=== PATIENT | female | born 1950 | race Caucasian/White ===

== ENCOUNTER → 2016-11-29 | Outpatient (CLI) | payer MEDICARE, BC ==
[2016-11-29 11:11] LABS: ALT 25 U/L (9-52); AST 29 U/L (14-36); Blood Urea Nitrogen 13 mg/dL (7-17); Calcium 10.1 mg/dL (8.4-10.2); Cholesterol 297 mg/dL (<200); HDL Cholesterol 80 mg/dL (40-60); Non-African American GFR(MDRD) >60 (>60 ml/min/1.73 sqM); Triglycerides 122 mg/dL (<150)
== END | disposition home or self-care (01) ==
LOC: LABWHC1 09:50
PROVIDERS: ATTEND Internal Medicine
DX: E03.9 Hypothyroidism, unspecified (principal); I10 Essential (primary) hypertension; E78.00 Pure hypercholesterolemia, unspecified
CPT/HCPCS: 36415; 80061; 82310; 82565; 84443; 84450; 84460; 84520

== ENCOUNTER → 2017-04-12 | Outpatient (CLI) | payer MEDICARE, BC ==
[2017-04-12 11:08] LABS: Basophils % (A) 1 %; CH 31.3; CHCM 34.3; Eosinophils # (A) 0.2 k/uL (0-0.7); Eosinophils % (A) 3 %; HCT 39.2 % (34.0-46.0); HDW 2.51; HGB 13.3 gm/dL (11.4-16.0); Luc # (Auto) 0.14; Luc % (Auto) 2; Lymphocytes # (A) 1.3 k/uL (1.0-4.8); Lymphocytes % (A) 23 %; MCH 31.2 pg (25.0-35.0); MCV 91.6 fL (80.0-100.0); Mean Platelet Volume 6.4; Monocytes # (A) 0.4 k/uL (0-1.0); Monocytes % (A) 6 %; Neutrophils # (A) 3.7 k/uL (1.3-7.7); Neutrophils % (A) 65 %; RBC 4.28 m/uL (3.80-5.40); RDW 12.5 % (11.5-15.5); WBC 5.6 k/uL (3.8-10.6); WBC (Perox) 5.86
[2017-04-12 11:33] LABS: ALT 37 U/L (9-52); AST 30 U/L (14-36); Cholesterol 222 mg/dL (<200); Glucose 89 mg/dL (74-99); HDL Cholesterol 82 mg/dL (40-60)
== END | disposition home or self-care (01) ==
LOC: LABWHC1 10:26
PROVIDERS: ATTEND Internal Medicine
DX: E78.00 Pure hypercholesterolemia, unspecified (principal); R13.10 Dysphagia, unspecified; Z77.010 Contact with and (suspected) exposure to arsenic
CPT/HCPCS: 36415; 80061; 82947; 84450; 84460; 85025

== ENCOUNTER → 2019-01-02 | Outpatient (CLI) | payer MEDICARE, BC ==
[2019-01-02 11:36] LABS: Basophils # (A) 0.1 k/uL (0-0.2); Basophils % (A) 1 %; Eosinophils # (A) 0.2 k/uL (0-0.7); Eosinophils % (A) 3 %; HCT 39.8 % (34.0-46.0); HGB 13.2 gm/dL (11.4-16.0); Lymphocytes # (A) 1.3 k/uL (1.0-4.8); Lymphocytes % (A) 25 %; MCH 30.1 pg (25.0-35.0); MCHC 33.1 g/dL (31.0-37.0); MCV 90.9 fL (80.0-100.0); Mean Platelet Volume 6.6; Monocytes # (A) 0.3 k/uL (0-1.0); Monocytes % (A) 6 %; Neutrophils # (A) 3.4 k/uL (1.3-7.7); Neutrophils % (A) 63 %; Platelet Count 290 k/uL (150-450); RBC 4.38 m/uL (3.80-5.40); RDW 13.9 % (11.5-15.5); WBC 5.3 k/uL (3.8-10.6)
[2019-01-02 17:06] LABS: Calcium 9.7 mg/dL (8.7-10.3); LDL Cholesterol,Calculated 119.2 mg/dL (0.0-131.0); Potassium 4.9 mmol/L (3.5-5.5); VLDL Calculation 17.8 mg/dL (5.00-40.00)
== END | disposition home or self-care (01) ==
LOC: LABWHC1 10:46
PROVIDERS: ATTEND Internal Medicine
DX: E78.00 Pure hypercholesterolemia, unspecified (principal); I10 Essential (primary) hypertension; K25.9 Gastric ulcer, unspecified as acute or chronic, without hemorrhage or perforation
CPT/HCPCS: 36415; 80048; 80061; 84450; 84460; 85025

== ENCOUNTER → 2020-05-12 | Outpatient (CLI) | payer MEDICARE, BC ==
[2020-05-12 16:38] LABS: Basophils # (A) 0.1 k/uL (0-0.2); Basophils % (A) 1 %; Eosinophils # (A) 0.1 k/uL (0-0.7); Eosinophils % (A) 1 %; HCT 38.8 % (34.0-46.0); HGB 13.2 gm/dL (11.4-16.0); Lymphocytes # (A) 1.5 k/uL (1.0-4.8); Lymphocytes % (A) 16 %; MCH 32.5 pg (25.0-35.0); MCHC 34.2 g/dL (31.0-37.0); MCV 94.9 fL (80.0-100.0); Mean Platelet Volume 6.6; Monocytes # (A) 0.4 k/uL (0-1.0); Monocytes % (A) 4 %; Neutrophils % (A) 76 %; Platelet Count 254 k/uL (150-450); RBC 4.08 m/uL (3.80-5.40); RDW 12.2 % (11.5-15.5); WBC 9.2 k/uL (3.8-10.6)
[2020-05-13 00:08] LABS: Erythrocyte Sedimentation Rate 16 mm/Hr (0-30)
[2020-05-13 04:08] LABS: ALT 21 U/L (8-44); AST 17 U/L (13-35); Alkaline Phosphatase 48 U/L (41-126); BUN/Creat Ratio 21.43 Ratio (12.00-20.00); C Reactive Protein <0.4 mg/dL (0.0-0.8); Calcium 10.6 mg/dL (8.7-10.3); Carbon Dioxide 21.9 mmol/L (21.6-31.8); Chloride 101 mmol/L (96-109); Glucose 80 mg/dL (70-110); Non-African American GFR(CKD) 87.2 (60.0-200.0); Potassium 4.1 mmol/L (3.5-5.5); Sodium 131 mmol/L (135-145); Total Bilirubin 0.4 mg/dL (0.3-1.2); Total Protein 6.4 g/dL (6.2-8.2)
== END | disposition home or self-care (01) ==
LOC: LABWHC1 15:29
PROVIDERS: ATTEND Internal Medicine Gastroenterology
DX: R19.7 Diarrhea, unspecified (principal)
CPT/HCPCS: 36415; 80053; 85025; 85652; 86140

== ENCOUNTER → 2020-09-15 | Outpatient (CLI) | payer MEDICARE, BC ==
[2020-09-15 17:14] LABS: HCT 40.1 % (34.0-46.0); HGB 13.5 gm/dL (11.4-16.0); MCH 31.5 pg (25.0-35.0); MCHC 33.8 g/dL (31.0-37.0); MCV 93.2 fL (80.0-100.0); Mean Platelet Volume 6.6; Platelet Count 263 k/uL (150-450); RDW 12.2 % (11.5-15.5); WBC 8.3 k/uL (3.8-10.6)
[2020-09-15 17:26] LABS: African American GFR (CKD) >90 (>60 ml/min/1.73 sqM); Anion Gap 7 mmol/L; Blood Urea Nitrogen 14 mg/dL (7-17); Carbon Dioxide 26 mmol/L (22-30); Chloride 98 mmol/L (98-107); Non-African American GFR(CKD) 88 (>60 ml/min/1.73 sqM); Potassium 4.8 mmol/L (3.5-5.1); Sodium 131 mmol/L (137-145)
== END | disposition home or self-care (01) ==
LOC: LABPAT 16:00
PROVIDERS: ATTEND Internal Medicine Interventional Cardiology
DX: Z01.818 Encounter for other preprocedural examination (principal); R07.9 Chest pain, unspecified
CPT/HCPCS: 80051; 82565; 84520; 85027

== ENCOUNTER 2020-09-17 09:46 | Day surgery (SDC) | payer MEDICARE, BC ==
[2020-09-16 09:04] VITALS: BMI 27.2
[~2020-09-17 09:46] MED LIST: ALPRAZolam 0.25 MG TAB PO PRN; ALPRAZolam 0.5 MG TAB PO PRN; ASPIRIN 325 MG TAB PO STA; HEPARIN SODIUM,PORCINE 10,000 UNIT in SODIUM CHLORIDE 0.9% 1,000 ML IRRIGATION PRN; HEPARIN SODIUM,PORCINE 2,500 UNIT in SODIUM CHLORIDE 0.9% 250 ML IRRIGATION PRN; NITROGLYCERIN SL TABS 0.4 MG TAB SUBLINGUAL PRN; SODIUM CHLORIDE 0.9% 1,000 ML in EMPTY BAG 1 BAG IV ONE
[2020-09-17 10:36] VITALS: TEMP 98.2
[2020-09-17] MEDS: MIDAZOLAM 2 MG/2 ML VIAL IVP ONE ×2 (11:57→12:01)
[2020-09-17] MEDS ORDERED: LIDOCAINE 1% INJ 10MG/ML (20 ML MDV) SQ ONE (11:57)
[2020-09-17] MEDS: fentaNYL (PF) 50 MCG/ML 2 ML AMP IVP ONE ×2 (11:57→12:01)
[2020-09-17] MEDS ORDERED: VERAPAMIL SYRINGE (5 MG/10 ML) INTRAARTER ONE (11:59)
[2020-09-17] MEDS ORDERED: HEPARIN SODIUM 1,000 UN/ML (10ML VL) IV ONE (12:06)
[2020-09-17] MEDS ORDERED: IOPAMIDOL-370 125ML BTL INJ ONE (12:06)
[2020-09-17] MEDS ORDERED: SODIUM CHLORIDE 0.9% 1,000 ML IV SCH (12:15)
[2020-09-17 13:10] VITALS: RESP 16
--- NOTE | 2020-09-17 13:30 | CC ---
CARDIAC CATHETERIZATION REPORT DATE OF SERVICE: September 17, 2020 PERFORMING PHYSICIAN: Khai Mccormick MD. PROCEDURE PERFORMED: 1. Selective right and left coronary angiogram. 2. Left heart catheterization. INDICATION: This is a 70-year-old female patient with dyslipidemia and significant family history of coronary artery disease, was seen in the office recently with chest discomfort concerning for angina. She would like to have a definite diagnosis and because of that, a heart catheterization was advised. APPROACH: Right radial artery. COMPLICATION: None. LEVEL OF SEDATION: Moderate with a sedation length of 11 minutes. PROCEDURE DESCRIPTION: After obtaining an informed consent, the patient was brought to the cardiac analytical lab analyst. The right radial artery was cannulated using micropuncture technique, the micropuncture wire passed easily then I placed a 6-Cambodian sheath at the right radial artery. I gave the patient a total of 5000 units of heparin IV. Selective right and left coronary angiogram was performed using JR4 and JL3.5 catheters. The procedure was completed without any complication. I did left heart catheterization with a JR4 crossing the aortic valve then I did pullback across aortic valve. The procedure was completed without any complication. SELECTIVE CORONARY ANGIOGRAM: 1. The RCA is a large caliber vessel and it is a dominant vessel. The RCA appeared to have mild disease only. Distally, it bifurcates into PDA and PLV branches and both appeared to be angiographically normal. 2. The left main is angiographically normal. It bifurcates into LCX and LAD. 3. The LCX is a large caliber vessel. It is a nondominant vessel. The left circumflex is angiographically normal. It gives rise in the midportion into a large OM branch, which appeared to be angiographically normal. 4. The LAD is a large caliber vessel. The LAD is extremely calcified. It does have mild disease in the midportion. It gives rise into a large diagonal branch which seems to be angiographically normal. HEMODYNAMIC: The LVEDP was 12 mmHg without significant gradient across the aortic valve. CONCLUSION: 1. Calcified right and left coronary system. 2. Mild nonobstructive coronary artery disease. 3. Normal LVEDP. POSTPROCEDURE MANAGEMENT: 1. Medical treatment. 2. Follow up with the patient. MMODL / IJN: [id number] /
[2020-09-17 14:22] VITALS: BP 112/56; PULSE 73
== END 2020-09-17 15:27 | disposition home or self-care (01) ==
LOC: CATHCVL 09:46
PROVIDERS: ATTEND Internal Medicine Interventional Cardiology
DX: I25.10 Atherosclerotic heart disease of native coronary artery without angina pectoris (principal); R07.89 Other chest pain; I10 Essential (primary) hypertension; E78.5 Hyperlipidemia, unspecified; I35.1 Nonrheumatic aortic (valve) insufficiency; Z72.0 Tobacco use; Z79.899 Other long term (current) drug therapy; Z79.890 Hormone replacement therapy; Z88.8 Allergy status to other drugs, medicaments and biological substances; Z82.49 Family history of ischemic heart disease and other diseases of the circulatory system
CPT/HCPCS: 93458; C1769 ×2; C1894; J2250; J2001; J3010; J1644; Q9967

== ENCOUNTER 2020-09-22 14:50 | Emergency (ER) | payer MEDICARE, BC ==
--- NOTE | 2020-09-22 15:24 | ED ---
Extremity Problem HPI - General Chief complaint: Extremity Problem,Nontraumatic Stated complaint: Post heart cath wrist issue Time Seen by Provider: 09/22/20 14:55 Source: patient Mode of arrival: ambulatory Limitations: no limitations - History of Present Illness Initial comments: 70-year-old female with past medical history of high cholesterol who presents emergency Department with reported right upper extremity discomfort and pulsation. She had a heart cath on Sunday with Dr. Mccormick states that she noticed yesterday she was having pulsations over the dorsal aspect of her right wrist. She called Dr. Mccormick to notify the patient of her symptoms. Reports that the pulsations then proceeded up into her forearm and she called Dr. Mccormick's office back again who recommended that she going to the emergency room for evaluation. She denies any numbness, tingling, weakness or skin color changes in her hand. Does admit to chest pain however this has been constant for the past 2 months and precipitated the cath. Denies that she's had any changes to the chest pain. Occasionally will make her feel short of breath at night. Denies any lower extremity swelling. No history of DVT or PE. Not on any anticoagulation. No fevers or chills. Denies cough. Does have a history of pancreatitis and is concerned that her symptoms may be similar in nature. Denies any nausea or vomiting. No other alleviating, precipitating or modifying factors - Related Data Home Medications Medication Instructions Recorded Confirmed Aspirin 325 mg PO DAILY 09/16/20 09/16/20 Estrogen Cream 0.125 mg TOPICAL BID 09/16/20 Fluconazole [Diflucan] 150 mg PO FR 09/16/20 09/17/20 Levothyroxine Sodium [Synthroid] 88 mcg PO DAILY 09/16/20 09/17/20 Olmesartan [Benicar] 20 mg PO DAILY 09/16/20 09/17/20 Omeprazole [PriLOSEC] 20 mg PO AC-BRKFST 09/16/20 09/16/20 Progesterone Cream 100 mg TOPICAL BID 09/16/20 Rosuvastatin Calcium [Crestor] 5 mg PO Q2D 09/16/20 09/17/20 Testosterone [Testosterone 1.62% 1 packet TRANSDERM BID 09/16/20 09/16/20 (2500 mg)] buPROPion XL [Wellbutrin Xl] 150 mg PO DAILY 09/16/20 09/17/20 carvediloL [Coreg] 3.125 mg PO BID 09/16/20 09/17/20 Allergies Allergy/AdvReac Type Severity Reaction Status Date / Time niacin Allergy Severe Anaphylaxis Verified 09/22/20 15:00 [From Niaspan Extended-Release] Review of Systems ROS Statement: Those systems with pertinent positive or pertinent negative responses have been documented in the HPI. ROS Other: All systems not noted in ROS Statement are negative. Past Medical History Past Medical History: Asthma, GERD/Reflux, Hyperlipidemia, Hypertension, Thyroid Disorder Additional Past Medical History / Comment(s): ASTHMA- WELL CONTROLLED, HX MERXURY POISONING 2005, COLONGENESIS COLITIS AND DIVERTICULITIS AND AORTIC REGURGITATION History of Any Multi-Drug Resistant Organisms: None Reported Past Surgical History: Heart Catheterization, Hysterectomy, Orthopedic Surgery Additional Past Surgical History / Comment(s): BILAT BUNIONECTOMY-2015, COLONOSCOPIES-LAST 06/2020, HYSTERECTOMY 1995, BILAT CARPAL TUNNEL RELEASE 2004, Colonoscopy June 2020, EGD 2019, Heart cath with no stent on 09/17/2020 Past Anesthesia/Blood Transfusion Reactions: Previous Problems w/ Anesthesia, Postoperative Nausea & Vomiting (PONV) Additional Past Anesthesia/Blood Transfusion Reaction / Comment(s): WOKE UP DURING COLONOSCOPY IN 06/2020 Past Psychological History: Anxiety, Depression Smoking Status: Former smoker Past Alcohol Use History: Occasional Past Drug Use History: None Reported - Past Family History Mother Family Medical History: No Reported History General Exam Limitations: no limitations General appearance: alert, in no apparent distress Head exam: Present: atraumatic, normocephalic, normal inspection Eye exam: Present: normal appearance, PERRL, EOMI. Absent: scleral icterus, conjunctival injection, periorbital swelling ENT exam: Present: normal exam, mucous membranes moist Neck exam: Present: normal inspection. Absent: tenderness, meningismus, lymphadenopathy Respiratory exam: Present: normal lung sounds bilaterally. Absent: respiratory distress, wheezes, rales, rhonchi, stridor Cardiovascular Exam: Present: regular rate, normal rhythm, normal heart sounds. Absent: systolic murmur, diastolic murmur, rubs, gallop, clicks GI/Abdominal exam: Present: soft, normal bowel sounds. Absent: distended, tenderness, guarding, rebound, rigid Extremities exam: Present: normal inspection, full ROM, normal capillary refill. Absent: tenderness, pedal edema, joint swelling, calf tenderness Back exam: Present: normal inspection Neurological exam: Present: alert, oriented X3, CN II-XII intact Psychiatric exam: Present: normal affect, normal mood Skin exam: Present: warm, dry, intact, normal color. Absent: rash Course Vital Signs 09/22/20 09/22/20 14:53 17:38 Temperature 97.6 F 97.9 F Pulse Rate 84 77 Respiratory 18 16 Rate Blood Pressure 113/74 115/71 O2 Sat by Pulse 100 98 Oximetry Medical Decision Making - Medical Decision Making Upon arrival the patient is placed into room 3. A thorough history and physical exam was performed. A 12-lead EKG was performed. Other tracings are conducted. IV is established. Ultrasound was performed patient's right upper extremity which failed to demonstrate a pseudoaneurysm. Laboratory studies revealed a sodium of 125. D-dimer 0.26. Troponin is negative. Results are discussed with the patient. Attempted to contact Dr. Mccormick as he has sent the patient into the emergency department. Currently awaiting callback. The results are discussed the patient. She was given a liter bolus of normal saline. Instructed that she needs to have repeat laboratory studies drawn on Sunday. She is given a prescription. These results will be sent Dr. Mccormick that she does have an appointment with him next Sunday. If she has any new or worsening symptoms she should return to the emergency room. Patient was discharged home in stable con dition - Lab Data Result diagrams: 09/22/20 15:54 09/22/20 15:54 Lab Results 09/22/20 09/22/20 09/22/20 Range/Units 15:54 15:54 15:54 WBC 7.0 (3.8-10.6) k/uL RBC 4.27 (3.80-5.40) m/uL Hgb 13.6 (11.4-16.0) gm/dL Hct 38.6 (34.0-46.0) % MCV 90.3 (80.0-100.0) fL MCH 31.7 (25.0-35.0) pg MCHC 35.1 (31.0-37.0) g/dL RDW 12.1 (11.5-15.5) % Plt Count 283 (150-450) k/uL MPV 6.6 Neutrophils % 73 % Lymphocytes % 17 % Monocytes % 7 % Eosinophils % 2 % Basophils % 1 % Neutrophils # 5.1 (1.3-7.7) k/uL Lymphocytes # 1.2 (1.0-4.8) k/uL Monocytes # 0.5 (0-1.0) k/uL Eosinophils # 0.1 (0-0.7) k/uL Basophils # 0.0 (0-0.2) k/uL PT 10.1 (9.0-12.0) sec INR 0.9 (<1.2) APTT 24.3 (22.0-30.0) sec D-Dimer 0.26 (<0.60) mg/L FEU Sodium 125 L (137-145) mmol/L Potassium 4.5 (3.5-5.1) mmol/L Chloride 94 L (98-107) mmol/L Carbon Dioxide 23 (22-30) mmol/L Anion Gap 8 mmol/L BUN 15 (7-17) mg/dL Creatinine 0.66 (0.52-1.04) mg/dL Est GFR (CKD-EPI)AfAm >90 (>60 ml/min/1.73 sqM) Est GFR (CKD-EPI)NonAf 89 (>60 ml/min/1.73 sqM) Glucose 108 H (74-99) mg/dL Calcium 10.0 (8.4-10.2) mg/dL Total Bilirubin 0.5 (0.2-1.3) mg/dL AST 24 (14-36) U/L ALT 21 (4-34) U/L Alkaline Phosphatase 46 (38-126) U/L Troponin I (0.000-0.034) ng/mL Total Protein 7.0 (6.3-8.2) g/dL Albumin 4.3 (3.5-5.0) g/dL Lipase 64 (23-300) U/L 09/22/20 Range/Units 15:54 WBC (3.8-10.6) k/uL RBC (3.80-5.40) m/uL Hgb (11.4-16.0) gm/dL Hct (34.0-46.0) % MCV (80.0-100.0) fL MCH (25.0-35.0) pg MCHC (31.0-37.0) g/dL RDW (11.5-15.5) % Plt Count (150-450) k/uL MPV Neutrophils % % Lymphocytes % % Monocytes % % Eosinophils % % Basophils % % Neutrophils # (1.3-7.7) k/uL Lymphocytes # (1.0-4.8) k/uL Monocytes # (0-1.0) k/uL Eosinophils # (0-0.7) k/uL Basophils # (0-0.2) k/uL PT (9.0-12.0) sec INR (<1.2) APTT (22.0-30.0) sec D-Dimer (<0.60) mg/L FEU Sodium (137-145) mmol/L Potassium (3.5-5.1) mmol/L Chloride (98-107) mmol/L Carbon Dioxide (22-30) mmol/L Anion Gap mmol/L BUN (7-17) mg/dL Creatinine (0.52-1.04) mg/dL Est GFR (CKD-EPI)AfAm (>60 ml/min/1.73 sqM) Est GFR (CKD-EPI)NonAf (>60 ml/min/1.73 sqM) Glucose (74-99) mg/dL Calcium (8.4-10.2) mg/dL Total Bilirubin (0.2-1.3) mg/dL AST (14-36) U/L ALT (4-34) U/L Alkaline Phosphatase (38-126) U/L Troponin I <0.012 (0.000-0.034) ng/mL Total Protein (6.3-8.2) g/dL Albumin (3.5-5.0) g/dL Lipase (23-300) U/L - EKG Data EKG Comments: EKG demonstrates normal sinus rhythm with a ventricular rate of 80. AR interval 148. QRS 92. QTC 415. No acute ST segment elevations. Incomplete report bundle-branch block. Q wave with inverted T in lead 3 Disposition Clinical Impression: S/P cardiac cath, Wrist pain, Hyponatremia Disposition: HOME SELF-CARE Condition: Stable Instructions (If sedation given, give patient instructions): Heart Catheterization (DC) Additional Instructions: Please follow-up with Dr. Mccormick at your scheduled appointment on Sunday. Return to the ED for any new or worsening symptoms. Have your labs drawn on sunday. The results will be sent to Dr. Astudillo office. Is patient prescribed a controlled substance at d/c from ED?: No Referrals: Nonstaff,Physician [Primary Care Provider] - 1-2 days Khai Mccormick MD [STAFF PHYSICIAN] - 1-2 days Time of Disposition: 17:28
[2020-09-22 16:01] LABS: Basophils % (A) 1 %; Eosinophils # (A) 0.1 k/uL (0-0.7); Eosinophils % (A) 2 %; HCT 38.6 % (34.0-46.0); HGB 13.6 gm/dL (11.4-16.0); Lymphocytes # (A) 1.2 k/uL (1.0-4.8); Lymphocytes % (A) 17 %; MCH 31.7 pg (25.0-35.0); MCHC 35.1 g/dL (31.0-37.0); MCV 90.3 fL (80.0-100.0); Mean Platelet Volume 6.6; Monocytes # (A) 0.5 k/uL (0-1.0); Monocytes % (A) 7 %; Neutrophils # (A) 5.1 k/uL (1.3-7.7); Neutrophils % (A) 73 %; Platelet Count 283 k/uL (150-450); RBC 4.27 m/uL (3.80-5.40); RDW 12.1 % (11.5-15.5)
[2020-09-22 16:10] LABS: ALT 21 U/L (4-34); AST 24 U/L (14-36); African American GFR (CKD) >90 (>60 ml/min/1.73 sqM); Albumin 4.3 g/dL (3.5-5.0); Alkaline Phosphatase 46 U/L (38-126); Anion Gap 8 mmol/L; Blood Urea Nitrogen 15 mg/dL (7-17); Carbon Dioxide 23 mmol/L (22-30); Chloride 94 mmol/L (98-107); Glucose 108 mg/dL (74-99); Lipase 64 U/L (23-300); Non-African American GFR(CKD) 89 (>60 ml/min/1.73 sqM); Potassium 4.5 mmol/L (3.5-5.1); Sodium 125 mmol/L (137-145); Total Bilirubin 0.5 mg/dL (0.2-1.3)
[2020-09-22] MEDS ORDERED: SODIUM CHLORIDE 0.9% 1,000 ML IV ONE (16:17)
[2020-09-22 16:21] LABS: D-Dimer 0.26 mg/L FEU (<0.60); INR 0.9 (<1.2); Partial Thromboplastin Time 24.3 sec (22.0-30.0); Prothrombin Time 10.1 sec (9.0-12.0)
--- NOTE | 2020-09-22 16:26 | US ---
EXAMINATION TYPE: US upper ext pseudo RT DATE OF EXAM: 09/22/2020 COMPARISON: NONE CLINICAL HISTORY: recent heart cath, pulsating cath site. Patient hd heart cath 09/17, states she felt a pulsatile palpable at her cath site. Normal soft tissue scan with no abnormality of the radial artery seen. IMPRESSION: No diagnostic evidence of pseudoaneurysm.
[2020-09-22 17:40] VITALS: BP 115/71; PULSE 77; RESP 16; TEMP 97.9
== END 2020-09-22 17:38 | disposition home or self-care (01) ==
LOC: EC 14:50
DX: E87.1 Hypo-osmolality and hyponatremia (principal); M25.531 Pain in right wrist; Z98.890 Other specified postprocedural states; J45.909 Unspecified asthma, uncomplicated; K21.9 Gastro-esophageal reflux disease without esophagitis; I10 Essential (primary) hypertension; E78.5 Hyperlipidemia, unspecified; E78.00 Pure hypercholesterolemia, unspecified; E07.9 Disorder of thyroid, unspecified; F41.9 Anxiety disorder, unspecified; F32.9 Major depressive disorder, single episode, unspecified; Z79.890 Hormone replacement therapy; Z79.02 Long term (current) use of antithrombotics/antiplatelets; Z79.899 Other long term (current) drug therapy; Z88.8 Allergy status to other drugs, medicaments and biological substances; Z87.891 Personal history of nicotine dependence
CPT/HCPCS: 36415; 80053; 83690; 84484; 85025; 85379; 85610; 85730; 93005; 96360; 99284

== ENCOUNTER → 2020-09-24 | Outpatient (CLI) | payer MEDICARE, BC ==
[2020-09-25 02:15] LABS: African American GFR (CKD) 85.4 (60.0-200.0); Anion Gap 7.4 mmol/L (4.00-12.00); Calcium 10.1 mg/dL (8.7-10.3); Carbon Dioxide 23.6 mmol/L (21.6-31.8); Non-African American GFR(CKD) 73.7 (60.0-200.0); Potassium 4.7 mmol/L (3.5-5.5)
== END | disposition home or self-care (01) ==
LOC: LABWHC1 15:12
PROVIDERS: ATTEND Emergency Medicine
DX: E87.1 Hypo-osmolality and hyponatremia (principal)
CPT/HCPCS: 36415; 80048

== ENCOUNTER → 2022-07-03 | Outpatient (CLI) | payer MEDICARE, BC ==
[2022-07-03 15:24] LABS: HCT 40.7 % (37.2-46.3); HGB 13.3 g/dL (12.0-15.0); MCH 30.6 pg (27.0-32.0); MCHC 32.7 g/dL (32.0-37.0); MCV 93.8 fL (80.0-97.0); Mean Platelet Volume 10.3 fL (9.5-12.2); NRBC Per 100 WBC 0 /100 WBCS (0.0-0.0); Platelet Count 289 X 10*3/uL (140-440); RBC 4.34 X 10*6/uL (4.10-5.20); RDW 12.8 % (11.5-14.5); WBC 6.45 X 10*3/uL (4.50-10.00)
[2022-07-03 15:33] LABS: Chol/HDL Ratio 3.04 Ratio; LDL Cholesterol,Calculated 135.2 mg/dL (0.0-131.0)
[2022-07-03 15:48] LABS: ALT 22 U/L (8-44); AST 24 U/L (13-35); African American GFR (CKD) 87.9 (60.0-200.0); Blood Urea Nitrogen 17.6 mg/dL (9.0-27.0); Calcium 9.6 mg/dL (8.7-10.3); Carbon Dioxide 24.2 mmol/L (20.0-27.5); Chloride 98 mmol/L (96-109); Glucose 105 mg/dL (70-110); Non-African American GFR(CKD) 75.8 (60.0-200.0); Potassium 5.3 mmol/L (3.5-5.5); Sodium 134 mmol/L (135-145)
== END | disposition home or self-care (01) ==
LOC: LABWHC1 09:51
PROVIDERS: ATTEND Internal Medicine Interventional Cardiology
DX: E78.2 Mixed hyperlipidemia (principal)
CPT/HCPCS: 36415; 80048; 80061; 84450; 84460; 85027

== ENCOUNTER → 2023-05-02 | Outpatient (CLI) | payer MEDICARE, BC ==
--- NOTE | 2023-05-03 08:20 | XR ---
EXAMINATION TYPE: XR facial bones complete DATE OF EXAM: 05/02/2023 COMPARISON: NONE HISTORY: Pain TECHNIQUE: 4 views submitted FINDINGS: Nasal septal deviation. Visualized osseous structures. Zygomatic arch appears no definite acute fract ure no obvious acute fracture or dislocation. IMPRESSION: No acute fracture
--- NOTE | 2023-05-03 08:21 | XR ---
EXAMINATION TYPE: XR humerus RT DATE OF EXAM: 05/02/2023 COMPARISON: NONE HISTORY: Pain TECHNIQUE: 2 views submitted. FINDINGS: The osseous structures are intact and the joint spaces are preserved. Diffuse osteopenia. Small spur involving the condyle. IMPRESSION: 1. No acute fracture or dislocation.
== END | disposition home or self-care (01) ==
LOC: RADXRMAIN 15:49
PROVIDERS: ATTEND Family Medicine
DX: S09.93XA Unspecified injury of face, initial encounter (principal); M79.621 Pain in right upper arm
CPT/HCPCS: 70150

== ENCOUNTER 2023-10-13 00:50 | Inpatient (IN) | payer MEDICARE, BC ==
--- NOTE | 2023-10-13 01:44 | ED ---
Abdominal Pain HPI <ManuelkrishJerome - Last Filed: 10/13/23 06:42> - General Source: patient Mode of arrival: wheelchair Limitations: no limitations <Ricki Arreola - Last Filed: 10/13/23 16:50> - General Chief Complaint: Abdominal Pain Stated Complaint: Right Side Abdominal Pain Time Seen by Provider: 10/13/23 01:08 - History of Present Illness Initial Comments: 73-year-old female presenting with chief complaint of abdominal pain. Patient started experiencing right lower quadrant pain at around 230 this afternoon. States that it has been sharp in nature and has been progressively worsening. She admits to decreased appetite. No nausea or vomiting. No fevers. She admits to cramping lower abdominal pain. Surgical history includes hysterectomy with bilateral oophorectomy. (Ricki Arreola) - Related Data Home Medications Medication Instructions Recorded Confirmed Fluconazole [Diflucan] 150 mg PO FR 09/16/20 10/13/23 Olmesartan [Benicar] 20 mg PO DAILY 09/16/20 10/13/23 Omeprazole [PriLOSEC] 20 mg PO DAILY 09/16/20 10/13/23 Rosuvastatin Calcium [Crestor] 5 mg PO Q2D 09/16/20 10/13/23 carvediloL [Coreg] 3.125 mg PO DAILY 09/16/20 10/13/23 Compounded 1 applic TOPICAL BID 10/13/23 10/13/23 Testosterone/Progesterone/Estrogen Cream(Unknown) Ofloxacin 0.3% Ophth Soln [Ocuflox 1 drop RIGHT EYE QID 10/13/23 10/13/23 Ophth Soln] Tretinoin [Tretinoin 0.05%] 1 applic TOPICAL HS 10/13/23 10/13/23 buPROPion SR [Wellbutrin SR] 150 mg PO DAILY 10/13/23 10/13/23 prednisoLONE ACETATE 1% OPHTH 1 drop RIGHT EYE QID 10/13/23 10/13/23 [Pred Forte 1%] Allergies Allergy/AdvReac Type Severity Reaction Status Date / Time niacin Allergy Severe Anaphylaxis Verified 10/13/23 10:06 [From Niaspan Extended-Release] piperacillin Allergy Rash/Hives Verified 10/13/23 10:06 pravastatin [From Pravachol] Allergy Unknown Verified 10/13/23 10:06 Review of Systems ROS Other: All systems not noted in ROS Statement are negative. <ManuelkrishJerome - Last Filed: 10/13/23 06:42> ROS Other: All systems not noted in ROS Statement are negative. <Ricki Arreola - Last Filed: 10/13/23 16:50> ROS Statement: Those systems with pertinent positive or pertinent negative responses have been documented in the HPI. Past Medical History Past Medical History: Asthma, GERD/Reflux, Hyperlipidemia, Hypertension, Thyroid Disorder Additional Past Medical History / Comment(s): ASTHMA- WELL CONTROLLED, HX MERXURY POISONING 2005, COLONGENESIS COLITIS AND DIVERTICULITIS AND AORTIC REGURGITATION History of Any Multi-Drug Resistant Organisms: None Reported Past Surgical History: Heart Catheterization, Hysterectomy, Orthopedic Surgery Additional Past Surgical History / Comment(s): BILAT BUNIONECTOMY-2015, COLONOSCOPIES-LAST 06/2020, HYSTERECTOMY 1995, BILAT CARPAL TUNNEL RELEASE 2004, Colonoscopy June 2020, EGD 2019, Heart cath with no stent on 09/17/2020 Past Anesthesia/Blood Transfusion Reactions: Previous Problems w/ Anesthesia, Postoperative Nausea & Vomiting (PONV) Additional Past Anesthesia/Blood Transfusion Reaction / Comment(s): WOKE UP DURING COLONOSCOPY IN 06/2020 Past Psychological History: Anxiety, Depression Smoking Status: Former smoker Past Alcohol Use History: Occasional Past Drug Use History: None Reported - Past Family History Mother Family Medical History: No Reported History <Ricki Arreola - Last Filed: 10/13/23 16:50> General Exam Limitations: no limitations General appearance: alert, in no apparent distress Head exam: Present: atraumatic, normocephalic Eye exam: Present: normal appearance Neck exam: Present: normal inspection Respiratory exam: Present: normal lung sounds bilaterally. Absent: respiratory distress, wheezes, rales, rhonchi, stridor Cardiovascular Exam: Present: regular rate, normal rhythm, normal heart sounds. Absent: systolic murmur, diastolic murmur, rubs, gallop, clicks GI/Abdominal exam: Present: soft, tenderness, guarding. Absent: distended, rebound, rigid Neurological exam: Present: alert, oriented X3 Psychiatric exam: Present: normal affect, normal mood Skin exam: Present: warm, dry <Ricki Arreola - Last Filed: 10/13/23 16:50> Course Vital Signs 10/13/23 10/13/23 10/13/23 00:52 03:11 05:44 Temperature 98.7 F 97.9 F Pulse Rate 85 83 80 Respiratory 16 20 17 Rate Blood Pressure 179/89 145/70 120/68 O2 Sat by Pulse 98 98 97 Oximetry 10/13/23 08:31 Temperature 98.6 F Pulse Rate 94 Respiratory 18 Rate Blood Pressure 130/81 O2 Sat by Pulse 97 Oximetry Medical Decision Making - Lab Data Result diagrams: 10/13/23 01:45 10/13/23 01:45 <Jerome Pinon - Last Filed: 10/13/23 06:42> - Lab Data Result diagrams: 10/13/23 01:45 10/13/23 01:45 <Ricki Arreola - Last Filed: 10/13/23 16:50> - Medical Decision Making Was pt. sent in by a medical professional or institution (, PA, SALES COORDINATOR, urgent care, hospital, or mcc...) When possible be specific @ -[No] Did you speak to anyone other than the patient for history (EMS, parent, family, police, friend...)? What history was obtained from this source @ -[No] Did you review nursing and triage notes (agree or disagree)? Why? @ -[I reviewed and agree with nursing and triage notes] Were old charts reviewed (outside hosp., previous admission, EMS record, old EKG, old radiological studies, urgent care reports/EKG's, mcc records)? Report findings @ -[No old charts were reviewed] Differential Diagnosis (chest pain, altered mental status, abdominal pain women, abdominal pain men, vaginal bleeding, weakness, fever, dyspnea, syncope, headache, dizziness, GI bleed, back pain, seizure, CVA, palpatations, mental health, musculoskeletal)? @ -[Differential Abdominal Pain Women: Appendicitis, Cholecystitis, diverticulosis, ischemic bowel, pancreatitis, hepatitis, UTI, gastroenteritis, AAA, incarcerated hernia, bowel obstruction, constipation, inflammatory bowel, hepatitis, peptic ulcer disease, splenic infarction, perforated viscus, vulvitis, ovarian torsion, PID, kidney stone, placenta abruption, this is not meant to be an all-inclusive list EKG interpreted by me (3pts min.). @ -[As above] X-rays interpreted by me (1pt min.). @ -[None done] CT interpreted by me (1pt min.). @ -[None done] U/S interpreted by me (1pt. min.). @ -[None done] What testing was considered but not performed or refused? (CT, X-rays, U/S, labs)? Why? @ -[None] What meds were considered but not given or refused? Why? @ -[None] Did you discuss the management of the patient with other professionals (professionals i.e. , PA, SALES COORDINATOR, lab, RT, psych nurse, social services coordinator, arc welding machine operator, teacher, inspectors and regulatory officers, rn case manager hospice)? Give summary @ -[No] Was smoking cessation discussed for >3mins.? @ -[No] Was critical care preformed (if so, how long)? @ -[No] Were there social determinants of health that impacted care today? How? (Homelessness, low income, unemployed, alcoholism, drug addiction, transportation, low edu. Level, literacy, decrease access to med. care, snf, rehab)? @ -[No] Was there de-escalation of care discussed even if they declined (Discuss DNR or withdrawal of care, Hospice)? DNR status @ -[No] What co-morbidities impacted this encounter? (DM, HTN, Smoking, COPD, CAD, Cancer, CVA, ARF, Chemo, Hep., AIDS, mental health diagnosis, sleep apnea, morbid obesity)? @ -[None] Was patient admitted / discharged? Hospital course, mention meds given and route, prescriptions, significant lab abnormalities, going to OR and other p ertinent info. The patient's CT scan was pending radiology review at the time of shift change. Patient will be taken over by Dr. Arreola. (Jerome Pinon) Was pt. sent in by a medical professional or institution (, PA, SALES COORDINATOR, urgent care, hospital, or mcc...) When possible be specific @ -No Did you speak to anyone other than the patient for history (EMS, parent, family, police, friend...)? What history was obtained from this source @ -No Did you review nursing and triage notes (agree or disagree)? Why? @ -I reviewed and agree with nursing and triage notes Were old charts reviewed (outside hosp., previous admission, EMS record, old EKG, old radiological studies, urgent care reports/EKG's, mcc records)? Report findings @ -No old charts were reviewed Differential Diagnosis (chest pain, altered mental status, abdominal pain women, abdominal pain men, vaginal bleeding, weakness, fever, dyspnea, syncope, headache, dizziness, GI bleed, back pain, seizure, CVA, palpatations, mental health, musculoskeletal)? @ -MDM Differential Abdominal Pain Women: Appendicitis, Cholecystitis, diverticulosis, ischemic bowel, pancreatitis, hepatitis, UTI, gastroenteritis, AAA, incarcerated hernia, bowel obstruction, constipation, inflammatory bowel, hepatitis, peptic ulcer disease, splenic infarction, perforated viscus, vulvitis, ovarian torsion, PID, kidney stone, placenta abruption... This is not meant to be an all-inclusive list EKG interpreted by me (3pts min.). @ -As above X-rays interpreted by me (1pt min.). @ -None done CT interpreted by me (1pt min.). @ -None done U/S interpreted by me (1pt. min.). @ -None done What testing was considered but not performed or refused? (CT, X-rays, U/S, labs)? Why? @ -None What meds were considered but not given or refused? Why? @ -None Did you discuss the management of the patient with other professionals (professionals i.e. , PA, SALES COORDINATOR, lab, RT, psych nurse, social services coordinator, arc welding machine operator, teacher, inspectors and regulatory officers, rn case manager hospice)? Give summary @ -No Was smoking cessation discussed for >3mins.? @ -No Was critical care preformed (if so, how long)? @ -No Were there social determinants of health that impacted care today? How? (Homelessness, low income, unemployed, alcoholism, drug addiction, transpo rtation, low edu. Level, literacy, decrease access to med. care, snf, rehab)? @ -No Was there de-escalation of care discussed even if they declined (Discuss DNR or withdrawal of care, Hospice)? DNR status @ -No What co-morbidities impacted this encounter? (DM, HTN, Smoking, COPD, CAD, Cancer, CVA, ARF, Chemo, Hep., AIDS, mental health diagnosis, sleep apnea, morbid obesity)? @ -None Was patient admitted / discharged? Hospital course, mention meds given and route, prescriptions, significant lab abnormalities, going to OR and other pertinent info. @ -73-year-old female presenting chief complaint of right lower quadrant pain that started today. Admits to decreased appetite. History and physical exam are conducted. She has right lower quadrant tenderness and guarding as well as referred tenderness. WBC 13.3. Sodium is 127, patient has a baseline lower sodium level and with today's symptoms and decreased appetite likely has worsened her baseline hyponatremia. Urine shows large leukocytes with 24 WBCs and 21 squamous cells, could be inflammatory from possible appendicitis. CT of the abdomen pelvis with contrast is obtained, report is pending. Patient is signed out to my attending Dr. Pinon for further management and disposition (Ricki Arreola) - Lab Data Lab Results 10/13/23 10/13/23 10/13/23 Range/Units 01:45 01:45 01:45 WBC 13.3 H (3.8-10.6) k/uL RBC 4.34 (3.80-5.40) m/uL Hgb 13.6 (11.4-16.0) gm/dL Hct 39.2 (34.0-46.0) % MCV 90.1 (80.0-100.0) fL MCH 31.3 (25.0-35.0) pg MCHC 34.7 (31.0-37.0) g/dL RDW 13.2 (11.5-15.5) % Plt Count 241 (150-450) k/uL MPV 8.0 Neutrophils % 82 % Lymphocytes % 7 % Monocytes % 8 % Eosinophils % 1 % Basophils % 0 % Neutrophils # 10.9 H (1.3-7.7) k/uL Lymphocytes # 0.9 L (1.0-4.8) k/uL Monocytes # 1.1 H (0-1.0) k/uL Eosinophils # 0.2 (0-0.7) k/uL Basophils # 0.0 (0-0.2) k/uL Sodium 127 L (137-145) mmol/L Potassium 5.0 (3.5-5.1) mmol/L Chloride 100 (98-107) mmol/L Carbon Dioxide 20 L (22-30) mmol/L Anion Gap 7 mmol/L BUN 17 (7-17) mg/dL Creatinine 0.53 (0.52-1.04) mg/dL Est GFR (CKD-EPI)AfAm >90 (>60 ml/min/1.73 sqM) Est GFR (CKD-EPI)NonAf >90 (>60 ml/min/1.73 sqM) Glucose 107 H (74-99) mg/dL Plasma Lactic Acid Krishna (0.7-2.0) mmol/L Calcium 9.1 (8.4-10.2) mg/dL Total Bilirubin 1.3 (0.2-1.3) mg/dL AST 51 H (14-36) U/L ALT 21 (4-34) U/L Alkaline Phosphatase 31 L (38-126) U/L Total Protein 7.1 (6.3-8.2) g/dL Albumin 4.1 (3.5-5.0) g/dL Amylase 64 (30-110) U/L Lipase 65 (23-300) U/L Urine Color Colorless Urine Appearance Cloudy H (Clear) Urine pH 7.0 (5.0-8.0) Ur Specific [place] 1.017 (1.001-1.035) Urine Protein Negative (Negative) Urine Glucose (UA) Negative (Negative) Urine Ketones Negative (Negative) Urine Blood Negative (Negative) Urine Nitrite Negative (Negative) Urine Bilirubin Negative (Negative) Urine Urobilinogen <2.0 (<2.0) mg/dL Ur Leukocyte Esterase Large H (Negative) Urine RBC 2 (0-5) /hpf Urine WBC 24 H (0-5) /hpf Ur Squamous Epith Cells 21 H (0-4) /hpf Urine Bacteria Rare H (None) /hpf Urine Mucus Rare H (None) /hpf 10/13/23 Range/Units 01:45 WBC (3.8-10.6) k/uL RBC (3.80-5.40) m/uL Hgb (11.4-16.0) gm/dL Hct (34.0-46.0) % MCV (80.0-100.0) fL MCH (25.0-35.0) pg MCHC (31.0-37.0) g/dL RDW (11.5-15.5) % Plt Count (150-450) k/uL MPV Neutrophils % % Lymphocytes % % Monocytes % % Eosinophils % % Basophils % % Neutrophils # (1.3-7.7) k/uL Lymphocytes # (1.0-4.8) k/uL Monocytes # (0-1.0) k/uL Eosinophils # (0-0.7) k/uL Basophils # (0-0.2) k/uL Sodium (137-145) mmol/L Potassium (3.5-5.1) mmol/L Chloride (98-107) mmol/L Carbon Dioxide (22-30) mmol/L Anion Gap mmol/L BUN (7-17) mg/dL Creatinine (0.52-1.04) mg/dL Est GFR (CKD-EPI)AfAm (>60 ml/min/1.73 sqM) Est GFR (CKD-EPI)NonAf (>60 ml/min/1.73 sqM) Glucose (74-99) mg/dL Plasma Lactic Acid Krishna 0.9 (0.7-2.0) mmol/L Calcium (8.4-10.2) mg/dL Total Bilirubin (0.2-1.3) mg/dL AST (14-36) U/L ALT (4-34) U/L Alkaline Phosphatase (38-126) U/L Total Protein (6.3-8.2) g/dL Albumin (3.5-5.0) g/dL Amylase (30-110) U/L Lipase (23-300) U/L Urine Color Urine Appearance (Clear) Urine pH (5.0-8.0) Ur Specific [place] (1.001-1.035) Urine Protein (Negative) Urine Glucose (UA) (Negative) Urine Ketones (Negative) Urine Blood (Negative) Urine Nitrite (Negative) Urine Bilirubin (Negative) Urine Urobilinogen (<2.0) mg/dL Ur Leukocyte Esterase (Negative) Urine RBC (0-5) /hpf Urine WBC (0-5) /hpf Ur Squamous Epith Cells (0-4) /hpf Urine Bacteria (None) /hpf Urine Mucus (None) /hpf Disposition <Jerome Pinon - Last Filed: 10/13/23 06:42> <Ricki Arreola - Last Filed: 10/13/23 16:50> Clinical Impression: Appendicitis, acute Disposition: ADMITTED IP TO THIS HOSP Condition: Stable
[2023-10-13 02:04] LABS: Basophils % (A) 0 %; Eosinophils # (A) 0.2 k/uL (0-0.7); Eosinophils % (A) 1 %; HCT 39.2 % (34.0-46.0); HGB 13.6 gm/dL (11.4-16.0); Lymphocytes # (A) 0.9 k/uL (1.0-4.8); Lymphocytes % (A) 7 %; MCH 31.3 pg (25.0-35.0); MCHC 34.7 g/dL (31.0-37.0); MCV 90.1 fL (80.0-100.0); Monocytes # (A) 1.1 k/uL (0-1.0); Monocytes % (A) 8 %; Neutrophils # (A) 10.9 k/uL (1.3-7.7); Neutrophils % (A) 82 %; Platelet Count 241 k/uL (150-450); RBC 4.34 m/uL (3.80-5.40); RDW 13.2 % (11.5-15.5); WBC 13.3 k/uL (3.8-10.6)
[2023-10-13 02:07] LABS: Appearance,Urine Cloudy (Clear); Bacteria,Urine Rare /hpf; Bilirubin,Urine Negative (Negative); Blood,Urine Negative (Negative); Color,Urine Colorless; Glucose,Urine (UA) Negative (Negative); Ketones,Urine Negative (Negative); Leukocyte Esterase,Urine Large (Negative); Mucus,Urine Rare /hpf; Nitrite,Urine Negative (Negative); Protein,Urine Negative (Negative); RBC,Urine 2 /hpf (0-5); Specific Gravity,Urine 1.017 (1.001-1.035); Squamous Epithelial Cell,Urine 21 /hpf (0-4); Urobilinogen,Urine <2.0 mg/dL (<2.0); WBC,Urine 24 /hpf (0-5)
[2023-10-13] MEDS: SODIUM CHLORIDE 0.9% 1,000 ML IV STA (02:10)
[2023-10-13] MEDS: ONDANSETRON 4 MG/2 ML VIAL IVP STA (02:10)
[2023-10-13] MEDS: MORPHINE SULFATE 4 MG/ML SYRINGE IVP STA (02:11)
[2023-10-13 02:30] LABS: ALT 21 U/L (4-34); African American GFR (CKD) >90 (>60 ml/min/1.73 sqM); Amylase 64 U/L (30-110); Anion Gap 7 mmol/L; Blood Urea Nitrogen 17 mg/dL (7-17); Calcium 9.1 mg/dL (8.4-10.2); Carbon Dioxide 20 mmol/L (22-30); Chloride 100 mmol/L (98-107); Glucose 107 mg/dL (74-99); Lipase 65 U/L (23-300); Non-African American GFR(CKD) >90 (>60 ml/min/1.73 sqM); Sodium 127 mmol/L (137-145)
[2023-10-13 02:37] LABS: Albumin 4.1 g/dL (3.5-5.0); Alkaline Phosphatase 31 U/L (38-126); Total Bilirubin 1.3 mg/dL (0.2-1.3); Total Protein 7.1 g/dL (6.3-8.2)
[2023-10-13 02:38] LABS: AST 51 U/L (14-36)
[2023-10-13] MEDS: HYDROmorphone 1 MG/ML 1 ML SYRINGE IVP STA (04:05)
--- NOTE | 2023-10-13 06:47 | CT ---
EXAMINATION TYPE: CT abdomen pelvis w con CT DLP: 675.1 mGycm, Automated exposure control for dose reduction was used. DATE OF EXAM: 10/13/2023 3:00 AM COMPARISON: None. CLINICAL INDICATION:Female, 73 years old with history of RLQ abdominal pain; Pt. c/o right sided abdo juliana pain since 14:30 today. Denies N/V/fevers. TECHNIQUE: Axial CT of the abdomen and pelvis. Sagittal and coronal reformats were created on a [employer] workstation. Contrast used:100 mL of Isovue 370 with IV Contrast, (none if empty) Oral contrast used: without Oral Contrast (none if empty) FINDINGS: Motion limited exam. LOWER CHEST: Minimal linear atelectasis. Small pleural-based semicircular nodular density at the righ t lung base, benign in appearance. Heart size is upper normal. Partially seen opacity on the right, l ikely heterogeneously dense breast tissues. ABDOMEN LIVER: Unremarkable GALLBLADDER AND BILE DUCTS: Gallbladder is nondistended and shows a phrygian cap. No definite calcifi ed gallstones however isodense gallstone cannot be excluded. No pericholecystic inflammation. PANCREAS: No acute findings. Mildly prominent pancreatic duct. SPLEEN: Unremarkable. Vascular calcifications in the splenic hilum, small calcified aneurysm cannot b e excluded. ADRENAL GLANDS: Unremarkable. KIDNEYS AND URETERS: Kidneys enhance symmetrically. No evidence of hydronephrosis or visible renal ca lculus. The ureters are unremarkable. Circumscribed right renal hypodensity up to 2.7 cm in size in t he mid to lower pole, with small peripheral calcification, likely a cyst. PELVIS BLADDER: Mildly distended. Some undulation at the right anterior aspect could relate to small diverti culum. REPRODUCTIVE: Uterus is not seen, correlate for hysterectomy. Nonspecific somewhat thickened appearan ce of the soft tissues in the region of the vagina extending to the vulva; this could be correlated c linically as an outpatient. Ovaries are not readily identified. No pelvic mass is suggested. ABDOMEN & PELVIS STOMACH AND BOWEL: Assessment limited without enteric contrast. There is some heterogeneous material and fluid in the proximal stomach with mild distention. There seems to be an irregular thickened appe arance of the wall of the gastric outlet, followed by fluid distention of the proximal duodenum; find ings could be inflammatory or neoplastic. More distal small bowel loops are nondistended, there is no evidence of a small bowel obstruction. Moderate amount of stool in the colon. Some increased attenua tion in the distal small bowel and right colon, could be retained contrast material. There is a bowel segment in the right lower quadrant extending inferior to the cecum which is concerning for dilated inflamed appendix, this measures up to 1.5 cm diameter and appears to have some stool content. There is haziness and stranding of the adjacent fat. No extraluminal gas or focal fluid collection is seen. Mildly prominent regional lymph nodes, may be reactive. PERITONEUM/RETROPERITONEUM: No evidence of pneumoperitoneum or free fluid. VASCULATURE: Moderate atherosclerotic calcification of the abdominal aorta and branches. Aorta is tor tuous without evidence of aneurysm. Iliac arteries appear grossly patent. Normal caliber IVC. Portal veins are enhancing. Splenic vein is patent. LYMPH NODES: No enlarged by CT criteria nodes. SOFT TISSUE/ABDOMINAL WALL: Tiny fat-containing umbilical hernia. MUSCULOSKELETAL: Moderate degenerative changes of the visualized spine with mild levocurvature. Grade 1 anterolisthesis L4 on L5 and L5 on S1 with at least mild to moderate canal and foraminal stenoses. An acute osseous abnormality is not identified. IMPRESSION: 1. Right lower quadrant findings concerning for acute uncomplicated appendicitis. 2. Thickened appearance of the wall of the gastric outlet, could be inflammatory or neoplastic. Inco mplete distention may exacerbate this appearance. Correlate clinically, and one may consider upper en doscopy as appropriate. 3. Other chronic and likely incidental findings as above.
[2023-10-13] MEDS ORDERED: NALOXONE 0.4 MG/ML 1 ML VIAL IV PRN (06:52)
[2023-10-13] MEDS ORDERED: ONDANSETRON 4 MG/2 ML VIAL IVP PRN (06:52)
[2023-10-13] MEDS: SODIUM CHLORIDE 0.9% 1,000 ML IV SCH (07:51)
[2023-10-13] MEDS: PIPERACILLIN-TAZOBACTAM 3.375 GM in SODIUM CHLORIDE 0.9% 100 ML IVPB STA (07:51)
[2023-10-13] MEDS: MORPHINE SULFATE 4 MG/ML SYRINGE IV PRN (08:05)
[2023-10-13] MEDS: PANTOPRAZOLE 40 MG/10 ML VIAL IV SCH (08:09)
[2023-10-13] MEDS: diphenhydrAMINE 50 MG/ML 1 ML VIAL IVP STA (08:13)
[2023-10-13] MEDS: IV FLUID CONTINUATION 1,000 ML IV ONE (09:36)
[2023-10-13] MEDS ORDERED: NEOSTIGMINE 1 MG/ML 10 ML VIAL ONE (10:12)
[2023-10-13] MEDS ORDERED: SUCCINYLCHOLINE CHLORIDE 200 MG/10 ML VIAL IV ONE (10:12)
[2023-10-13] MEDS ORDERED: ROCURONIUM 10 MG/ML (5 ML VIAL) IV ONE (10:12)
[2023-10-13] MEDS ORDERED: GLYCOPYRROLATE 0.2 MG/ML 2 ML VIAL ONE (10:12)
[2023-10-13] MEDS ORDERED: PROPOFOL 10 MG/ML 20 ML VIAL IV ONE (10:12)
[2023-10-13] MEDS ORDERED: fentaNYL (PF) 50 MCG/ML 2 ML AMP ONE (10:12)
[2023-10-13] MEDS ORDERED: HEPARIN SODIUM,PORCINE 5,000 UNIT/ML 1 ML VIAL ONE (10:12)
[2023-10-13] MEDS ORDERED: LIDOCAINE 1% INJ 10MG/ML (20 ML MDV) ONE (10:12)
[2023-10-13] MEDS ORDERED: PHENYLEPHRINE-0.9% NACL SYG 1,000 MCG/10 ML SYRINGE ONE (10:12)
[2023-10-13] MEDS: SODIUM CHLORIDE 0.9% 100 ML with ceFAZolin 2,000 MG IV ONE (10:40)
[2023-10-13] MEDS: LIDOCAINE 2%-EPI 1:100,000 20 ML VIAL SQ ONE (10:42)
[2023-10-13] MEDS: ONDANSETRON 4 MG/2 ML VIAL IVP ONE (11:30)
[2023-10-13] MEDS: LACTATED RINGERS 1,000 ML IV SCH (12:56)
[2023-10-13] MEDS: ACETAMINOPHEN TAB 325 MG TAB PO PRN (22:45)
[2023-10-14] MEDS ORDERED: HYDROmorphone 0.5 MG/0.5 ML SYRINGE IVP PRN (07:00)
[2023-10-14] MEDS ORDERED: METOCLOPRAMIDE 5 MG/ML 2 ML VIAL IVP PRN (07:00)
[2023-10-14 08:23] VITALS: BP 173/74; PULSE 79; RESP 18; TEMP 97.7
--- NOTE | 2023-10-14 11:00 | P.DS ---
Providers Date of admission: 10/13/23 06:54 Expected date of discharge: 10/14/23 Attending physician: Lex Alonso Primary care physician: Lizzeth Jacobs MD Hospital Course: This is a 63-year-old female who underwent laparoscopic appendectomy Dr. paniagua. Patient did well postoperatively. She was discharged home postoperative day 1. Procedures: Laparoscopic appendectomy Patient Condition at Discharge: Stable Plan - Discharge Summary Discharge Rx Participant: No New Discharge Prescriptions: New Ibuprofen [Motrin] 600 mg PO Q6HR PRN #40 tab PRN Reason: Pain oxyCODONE HCL [OxyIR] 5 mg PO Q6H PRN 3 Days #10 tab PRN Reason: Pain Acetaminophen Tab [Tylenol] 650 mg PO Q6H #30 tab Docusate [Colace] 100 mg PO BID #20 capsule Acetaminophen Tab [Tylenol] 650 mg PO Q6H #30 tab Docusate [Colace] 100 mg PO BID #20 capsule Ibuprofen [Motrin] 600 mg PO Q6HR PRN #40 tab PRN Reason: Pain oxyCODONE HCL [OxyIR] 5 mg PO Q6H PRN 3 Days #10 tab PRN Reason: Pain No Action Omeprazole [PriLOSEC] 20 mg PO DAILY Fluconazole [Diflucan] 150 mg PO FR Rosuvastatin Calcium [Crestor] 5 mg PO Q2D carvediloL [Coreg] 3.125 mg PO DAILY Olmesartan [Benicar] 20 mg PO DAILY Compounded Testosterone/Progesterone/Estrogen Cream(Unknown) 1 applic TOPICAL BID buPROPion SR [Wellbutrin SR] 150 mg PO DAILY prednisoLONE ACETATE 1% OPHTH [Pred Forte 1%] 1 drop RIGHT EYE QID Ofloxacin 0.3% Ophth Soln [Ocuflox Ophth Soln] 1 drop RIGHT EYE QID Tretinoin [Tretinoin 0.05%] 1 applic TOPICAL HS Discharge Medication List Fluconazole [Diflucan] 150 mg PO FR 09/16/20 [History] Olmesartan [Benicar] 20 mg PO DAILY 09/16/20 [History] Omeprazole [PriLOSEC] 20 mg PO DAILY 09/16/20 [History] Rosuvastatin Calcium [Crestor] 5 mg PO Q2D 09/16/20 [History] carvediloL [Coreg] 3.125 mg PO DAILY 09/16/20 [History] Compounded Testosterone/Progesterone/Estrogen Cream(Unknown) 1 applic TOPICAL BID 10/13/23 [History] Ofloxacin 0.3% Ophth Soln [Ocuflox Ophth Soln] 1 drop RIGHT EYE QID 10/13/23 [History] Tretinoin [Tretinoin 0.05%] 1 applic TOPICAL HS 10/13/23 [History] buPROPion SR [Wellbutrin SR] 150 mg PO DAILY 10/13/23 [History] prednisoLONE ACETATE 1% OPHTH [Pred Forte 1%] 1 drop RIGHT EYE QID 10/13/23 [History] Acetaminophen Tab [Tylenol] 650 mg PO Q6H #30 tab 10/14/23 [Rx] Acetaminophen Tab [Tylenol] 650 mg PO Q6H #30 tab 10/14/23 [Rx] Docusate [Colace] 100 mg PO BID #20 capsule 10/14/23 [Rx] Docusate [Colace] 100 mg PO BID #20 capsule 10/14/23 [Rx] Ibuprofen [Motrin] 600 mg PO Q6HR PRN #40 tab 10/14/23 [Rx] Ibuprofen [Motrin] 600 mg PO Q6HR PRN #40 tab 10/14/23 [Rx] oxyCODONE HCL [OxyIR] 5 mg PO Q6H PRN 3 Days #10 tab 10/14/23 [Rx] oxyCODONE HCL [OxyIR] 5 mg PO Q6H PRN 3 Days #10 tab 10/14/23 [Rx] Follow up Appointment(s)/Referral(s): Lizzeth Jacobs MD [Primary Care Provider] - 1-2 days
== END 2023-10-14 12:49 | disposition home or self-care (01) | DRG 398 ==
LOC: EC 00:50 → 5NMEDONC 06:54
PROVIDERS: ADMIT Surgery; ATTEND Surgery
PROC: 0DTJ4ZZ Resection of Appendix, Percutaneous Endoscopic Approach (ICD-10-PCS; principal; 2023-10-13 09:09)
DX: K35.80 Unspecified acute appendicitis (principal); E87.1 Hypo-osmolality and hyponatremia; I10 Essential (primary) hypertension; E78.5 Hyperlipidemia, unspecified; J44.89 Other specified chronic obstructive pulmonary disease; Z79.899 Other long term (current) drug therapy; Z88.8 Allergy status to other drugs, medicaments and biological substances; Z88.1 Allergy status to other antibiotic agents; Z87.19 Personal history of other diseases of the digestive system; Z87.891 Personal history of nicotine dependence
CPT/HCPCS: 36415; 74177; 80053; 81001; 82150; 83605; 83690; 85025; 87086; 88304; 96361; 96365; 96375; 96376; 99285